=== PATIENT | female | born 1980 | race Two or more races ===

== ENCOUNTER 2022-02-16 12:06 | Emergency (ER) | payer MEDICAID ==
[~2022-02-16] VITALS: Ht 160 cm; Wt 71.5 kg
[2022-02-16 12:48] LABS: Red Blood Cells 4.75 10^6/uL (4.0-5.20); White Blood Cell 4.6 10^3/uL (4.4-10.8)
[2022-02-16 12:52] LABS: Hematocrit 26.5 % (36.0-46.0); Hemoglobin 7.4 g/dL (12.2-16.2); Mean Corpuscular Hemoglobin 15.6 pg (28.0-32.0); Mean Corpuscular Hgb Conc. 27.9 g/dL (32.0-36.0); Mean Corpuscular Volume 55.8 fL (80.0-100.0)
[2022-02-16 13:03] LABS: Albumin 3.4 g/dL (3.4-5.0); Calcium 8.1 mg/dL (8.5-10.1); INR 0.97 (0.9-1.15); Partial Thromboplastin Time 24.5 sec (24.6-33.4)
[2022-02-16 13:06] LABS: Basophils % (manual) 0 (0.0-2.0); Bilirubin, Total 0.3 mg/dL (0.2-1.0); Blast Cells 0; Metamyelocytes % 0; Myelocytes % 0; Promyelocytes % 0; Reactive Lymphocytes 0; Red Cell Distribution Width 21.7 % (11.8-14.3); Total Protein 7.6 g/dL (6.4-8.2)
[2022-02-16 21:10] VITALS: BP 127/70
[2022-02-16 21:25] VITALS: BP 122/71
[2022-02-16 22:48] VITALS: BP 117/67
== END 2022-02-16 23:34 | disposition home or self-care (01) ==
LOC: ER 12:06
DX: D64.9 Anemia, unspecified (principal); R10.2 Pelvic and perineal pain; Z90.49 Acquired absence of other specified parts of digestive tract
CPT/HCPCS: 36415; 80053; 84702; 85007; 85027; 85610; 85730; 86850; 86900; 86901; 86920; 99283; J7040; P9016